=== PATIENT | female | born 1965 | race Caucasian/White ===

== ENCOUNTER 2021-06-27 02:59 | Emergency (ER) | payer OTHER ==
[~2021-06-27] VITALS: Ht 170.2 cm; Wt 54.4 kg
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
[2021-06-27 06:37] VITALS: BP 130/87
== END 2021-06-27 06:42 | disposition home or self-care (01) ==
LOC: ER 02:59
DX: M54.50 Low back pain, unspecified (principal); M54.2 Cervicalgia; F10.20 Alcohol dependence, uncomplicated; I10 Essential (primary) hypertension; B19.20 Unspecified viral hepatitis C without hepatic coma; Y90.6 Blood alcohol level of 120-199 mg/100 ml; Z91.018 Allergy to other foods; Z88.8 Allergy status to other drugs, medicaments and biological substances; Y04.2XXA Assault by strike against or bumped into by another person, initial encounter; Y93.89 Activity, other specified; Y92.89 Other specified places as the place of occurrence of the external cause; Y99.8 Other external cause status